=== PATIENT | female | born 1935 | race Caucasian/White ===

== ENCOUNTER 2016-09-02 08:20 | Emergency (ER) | payer OTHER ==
[~2016-09-02] VITALS: Ht 157.5 cm; Wt 67.6 kg
[~2016-09-02 08:20] MED LIST: ASPIR 8181 MG PO; DEXILANT60 MG PO; HEPARIN 2525000 UNIT IV; LISINOPRIL HCTZ1 TAB PO; LISINOPRIL-HCT1 EACH PO; LO-DOSE ASPIRIN81 MG PO; NORCO 5-325 TA1 EACH PO; PERCOCET 5-3251 EACH PO; ZOFRAN4 M2 PO
[2016-09-02 08:25] VITALS: BP 149/74
--- NOTE | 2016-09-02 08:39 | ED NOSE COMPLAINT ---
History of Present Illness General Chief Complaint: Epistaxis/Nasal Foreign Body Stated Complaint: BLOODY NOSE X 2 WEEKS Source: patient, family, old records Exam Limitations: no limitations Vital Signs & Intake/Output Vital Signs & Intake/Output ED Intake and Output 09/03 0000 09/02 1200 Intake Total 0 Output Total Balance 0 Intake, Oral 0 Patient 149 lb Weight Weight Reported by Patient Measurement Method Allergies Coded Allergies: NSAIDS (Non-Steroidal Anti-Inflamma (GI BLEED 11/30/15) aspirin (GI BLEED 11/30/15) Uncoded Allergies: STEROIDS (UNKNOWN 12/09/15) STEROIDS PER ANTIBIOTIC ORDER SHEET OF 12/09/15 ([facility]) Reconcile Medications Aspirin (Ecotrin) 81 MG TABLET.DR 1 TAB PO DAILY HEART HEALTH (Reported) Lisinopril/Hydrochlorothiazide (Lisinopril-Hctz 20-12.5 MG Tab) 1 EACH TABLET HIGH CHOLESTROL (Reported) Oxycodone HCl/Acetaminophen (Percocet 5-325 MG Tablet) 1 EACH TABLET 1-2 TAB PO Q4P PRN PAIN RX PROVIDED TO DAUGHTER SHENG Triage Note: PT TO ED FOR INTERMITTENT NOSE BLEEDS X 2 WEEKS. REPORTING 3-4 EPISODES OF A BLOODY NOSE LASTING APPROX 10-15MIN EACH OVER TWO WEEKS. NO BLEEDING CURRENTLY IN TRIAGE. HAS NOT CALLED PCP, HAS F/U APPT WITH CARDIOLOGY TOMORROW, NO THINNERS. Triage Nurses Notes Reviewed? yes Onset: Last week Duration: week(s): (2), intermittent, waxing and waning Timing: recent history Injury Environment: home Severity: mild Severity Numbers: 2 No Modifying Factors: none Associated Symptoms: denies HPI: 80 year old female history of hypertension valve replacement not on any anticoagulation presents complaining of intermittent 2 week history of left- sided epistaxis that comes on randomly however more present after sneezing and coughing. She states that the bleeding stops with pressure however states that it has persisted is not getting worse. She denies any other bleeding no other bruising to her skin gingival bleeding headaches. She takes aspirin daily. No dizziness lightheadedness chest pain no recent trauma (JUVENAL GAUTAM,MEGHAN) Past History Travel History Traveled to [place] past 21 day No Medical History Any Pertinent Medical History? see below for history Neurological: NONE EENT: SINUS HEADACHES SINUS BALLOON Cardiovascular: CAD, hypertension, hyperlipidemia, CABG Respiratory: NONE Gastrointestinal: GERD, GALLSTONES Hepatic: NONE Renal: NONE Musculoskeletal: NONE Psychiatric: NONE Endocrine: NONE Blood Disorders: NONE Cancer(s): NONE NATURAL RESOURCE ECONOMIST/Reproductive: HYSTERECTOMY History of MRSA: No History of VRE: No History of CDIFF: No Surgical History Surgical History: cholecystectomy, valve replacement Psychosocial History Who do you live with Patient/Self Services at Home None What is your primary language Latvian Tobacco Use: Never used ETOH Use: denies use Illicit Drug Use: denies illicit drug use Family History Family History, If Any: DAUGHTER FH: CAD (coronary artery disease) Hx Contributory? No (MEGHAN RUEDA) Review of Systems Review of Systems Constitutional: Reports: see HPI. Comments Review of systems: See HPI, All other systems negative. Constitutional, no chills no fever, no malaise HEENT: no sore throat no congestion, no ear pain Cardiovascular: No chest pain , no palpitation Skin: no rashes, no change in skin Respiratory: No dyspnea no cough no sputum GI: No nausea no vomiting, no diarrhea Muscle skeletal: No joint pain, no joint swelling, no back pain Neurologic: , no headache Psych: No stress Heme/endocrine: No bruising bleeding Immunology: No lymphadenopathy (MEGHAN RUEDA) Physical Exam Physical Exam General Appearance: well developed/nourished, no apparent distress, alert Nose: normal inspection Comments: Well-developed well-nourished patient in no apparent distress. Head/Face: Atraumatic, no maxillary/frontal sinus tenderness, no facial swelling Eyes: PERRL, EOMI, no conjunctival injection. Ear:External auditory canal and Tympanic membranes clear, no erythema, no FB. Nose: atraumatic.slight minimal oozing blood from the left nostril, no visualized bleeding site, no septal hematoma Throat: Moist mucous membranes.Pharynx normal. No blood in the posterior pharynx Neck: Supple, no lymphadenopathy, FROM Back: FROM Cardiovascular: Regular rate and rhythms no murmurs Respiratory:. No respiratory distress. Patient speaking in full complete sentences. Breath sounds clear to auscultation bilaterally: NO W/R/R Extremities: full range of motion Neuro: awake, alert, and oriented to person, place and time. There were no obvious focal neurologic abnormalities. Skin: Warm & dry;No appreciable rash on exposed skin Psych: Mood affect normal, normal memory normal judgment. (MEGHAN RUEDA) Progress Differential Diagnoses I considered the following diagnoses in my evaluation of the patient: Epistaxis, thrombocytopenia clotting disorder Plan of Care: Orders Procedure Date/time Status PARTIAL THROMBOPLASTIN TIME 09/02 828 Complete PROTHROMBIN TIME 09/02 828 Complete CBC WITHOUT DIFFERENTIAL 09/02 828 Complete Laboratory Tests 09/02/16 0835: PT 11.2, INR 1.07, APTT 28, CBC w Diff NO MAN DIFF REQ, RBC 4.35, MCV 85.4, MCH 28.8, RDW 13.8, MPV 6.8 L, Gran % 61.5, Lymphocytes % 26.0, Monocytes % 10.1 H , Eosinophils % 2.0, Basophils % 0.4, Absolute Granulocytes 3.4, Absolute Lymphocytes 1.4, Absolute Monocytes 0.6, Absolute Eosinophils 0.1, Absolute Basophils 0, PUBS MCHC 33.7 Afrin was instilled within the left nostril pressure was applied after approximately 15 minutes there was no bleeding noted Discussed with the patient and her daughter her lab results Patient and daughter was instructed to follow-up with ear nose and throat seen before in [place]-there able to call while in the ER and an appointment for tomorrow. She's had no further bleeding in the department discussed the plan of care if bleeding persists to return to the emergency room immediately answered all their questions and felt comfortable with plan (MEGHAN RUEDA) Initial ED EKG: none (MEGHAN RUEDA) Departure Departure Time of Disposition: 906 Disposition: HOME OR SELF CARE Condition: Stable Clinical Impression Primary Impression: Epistaxis Referrals: SCOTT GRECO,MAG Viveros (PCP/Family) Additional Instructions: follow up with your ear nose and throat physician in [place] this week. afrin nasal spray as discussed: 1 spray in each nostril every day. use humidifier as discussed. return with any concerns Departure Forms: Customer Survey General Discharge Information (MEGHAN RUEDA) PA/INFORMATION TECHNOLOGY COORDINATOR Co-Sign Statement Statement: ED Attending supervision documentation- [X] I saw and evaluated the patient. I have also reviewed all the pertinent lab results and diagnostic results. I agree with the findings and the plan of care as documented in the PA's/INFORMATION TECHNOLOGY COORDINATOR's documentation. [X] I have reviewed the ED Record and agree with the PA's/INFORMATION TECHNOLOGY COORDINATOR's documentation. [] Additions or exceptions (if any) to the PAs/INFORMATION TECHNOLOGY COORDINATOR's note and plan are summarized below: [] (USHA GRECO,TAIWO)
[2016-09-02 08:50] LABS: ABSOLUTE BASOPHIL COUNT 0 /CUMM (0.0-0.2); ABSOLUTE EOSINOPHIL COUNT 0.1 /CUMM (0.0-0.7); ABSOLUTE GRANULOCYTE CT 3.4 /CUMM (1.4-6.5); ABSOLUTE LYMPH COUNT 1.4 /CUMM (1.2-3.4); ABSOLUTE MONOCYTE COUNT 0.6 /CUMM (0.10-0.60); BASOPHIL % 0.4 % (0.0-2.0); GRANULOCYTE % 61.5 % (42.2-75.2); HEMATOCRIT 37.2 % (37-47); MEAN CORPUSCULAR HGB 28.8 PG (27.0-31.0); MEAN CORPUSCULAR HGB CONC 33.7 G/DL (33.0-37.0); MEAN CORPUSCULAR VOLUME 85.4 FL (81.0-99.0); MEAN PLATELET VOLUME 6.8 FL (7.4-10.4); PLATELET COUNT 282 /CUMM (130-400); RBC DISTRIBUTION WIDTH 13.8 % (11.5-14.5); RED BLOOD CELL CT 4.35 /CUMM (4.20-5.40); WHITE BLOOD CELL COUNT 5.5 /CUMM (4.8-10.8)
[2016-09-02 08:57] LABS: PT 11.2 SEC (9.4-12.5); PTT 28 SEC (25-37)
== END 2016-09-02 09:34 ==
LOC: ERH 08:20
PROVIDERS: Physician Assistant Medical
DX: R04.0 Epistaxis (principal)